=== PATIENT | female | born 1975 | race Caucasian/White ===

== ENCOUNTER 2018-08-12 22:25 | Emergency (ER) | payer OTHER ==
[2018-08-12 22:33] VITALS: BP 116/76; PULSE 70; TEMP 98.8; BMI 27.4
[2018-08-12] MEDS ORDERED: SULFAMETHOXAZOLE 80 MG/TRIMETHOPRIM 16 MG/ML VIAL IVPB ONE (22:43)
[2018-08-12] MEDS ORDERED: VANCOMYCIN 1,000 MG in DEXTROSE 5%-WATER - 250 ML IVPB ONE (23:06)
[2018-08-12] MEDS ORDERED: VANCOMYCIN 1,000 MG VIAL (RESTRICTED TO ID ONLY) ONE (23:07)
[2018-08-12] MEDS ORDERED: SULFAMETHOXAZOLE/TRIMETHOPRIM 800MG/160MG D.S. TABLET PO ONE (23:07)
[2018-08-12] MEDS ORDERED: SULFAMETHOXAZOLE/TRIMETHOPRIM 800MG/160MG D.S. TABLET ONE (23:07)
--- NOTE | 2018-08-12 23:09 | PDOC ---
Documentation entered by Russ Bowen SCRIBE, acting as scribe for Eva Louie MD. Eva Louie MD: This documentation has been prepared by the Jessi roach Xhesika, SCRIBE, under my direction and personally reviewed by me in its entirety. I confirm that the documentation accurately reflects all work, treatment, procedures, and medical decision making performed by me. History of Present Illness - General Chief Complaint: Pain Stated Complaint: FEVER History Source: Patient Exam Limitations: No Limitations - History of Present Illness Initial Comments: 08/12/18 22:35 The patient is a 42 year old male, with no significant past medical history of who presents to the emergency department with a fever since this evening. The patient states she saw her PCP today for an infection on her breast, was prescribed bactrim and took her first dose at 12pm. The patient states at around 6:30pm she got a fever, felt shaky, and was feeling cold, however, her chills and shakiness have since resolved. The patient states she took ibuprofen 1hr prior to her ED arrival. The patient denies chest pain, shortness of breath, headache or dizziness. The patient denies chills, nausea, vomit, diarrhea or constipation. The patient denies dysuria, frequency, urgency or hematuria. PAST MEDICAL HISTORY: no significant history PAST SURGICAL HISTORY: no significant history FAMILY HISTORY: no pertinent history SOCIAL HISTORY: Pt lives with family and is employed. MEDICATIONS: reviewed ALLERGIES: As per nursing notes 08/12/18 22:37 A female who has diagnosis of a superficial cellulitis of her left breast. Patient started on Bactrim today to one dose had not taken her second dose. Patient spiked a temperature so comes in complaining of fever. Here in the ED patient was afebrile. However she did take Tylenol prior to coming in. Patient given IV Bactrim and discharged will follow-up with her primary care Past History - Past Medical History Allergies/Adverse Reactions: Allergies Allergy/AdvReac Type Severity Reaction Status Date / Time Penicillins Allergy Verified 08/12/18 22:27 Home Medications: Ambulatory Orders Aspirin 81 mg PO DAILY 08/12/18 Clonazepam [Klonopin] 0.5 mg PO DAILY 04/29/19 Escitalopram Oxalate [Lexapro -] 20 mg PO DAILY 08/12/18 Review of Systems - Review of Systems Able to Perform ROS?: Yes Comments:: 08/12/18 22:36 General: (+) fevers. No chills, no weakness, no weight loss HEENT: No change in vision. No sore throat,. No ear pain CardioVascular: No chest pain or shortness of breath Respiratory:No cough, or wheezing. Gastrointestinal: no nausea, vomiting, diarrhea or constipation, No rectal bleeding Genitourinary: No dysuria, hematuria, or frequency Musculoskeletal: No joint or muscle pain or swelling Neurologic: No headache, vertigo, dizziness or loss of consciousness Psychiatric: nor depression Skin: No rashes or easy bruising Endocrine: no increased thirst or abnormal weight change Allergic: no skin or latex allergy All other systems reviewed and normal *Physical Exam - Vital Signs Last Vital Signs Temp Pulse Resp BP Pulse Ox 98.8 F 70 16 116/76 99 08/12/18 22:29 08/12/18 22:29 08/12/18 22:29 08/12/18 22:29 08/12/18 22:29 - Physical Exam Comments: 08/12/18 22:36 GENERAL: The patient is awake, alert, and fully oriented, in no acute distress. HEAD: Normal with no signs of trauma. EYES: Pupils equal, round and reactive to light, extraocular movements intact, sclera anicteric, conjunctiva clear. BREAST: (+) erythema and tenderness over palpation of lower outer quadrant of L breast. No palpable collection. EXTREMITIES: Normal range of motion, no edema. NEUROLOGICAL: Normal speech, normal gait. PSYCH: Normal mood, normal affect. SKIN: Warm, Dry, normal turgor, no rashes or lesions noted. *DC/Admit/Observation/Transfer Diagnosis at time of Disposition: Cellulitis Qualifiers: Site of cellulitis: unspecified site Qualified Code(s): L03.90 - Cellulitis, unspecified - Discharge Dispostion Disposition: HOME Condition at time of disposition: Stable Decision to Admit order: No - Referrals - Patient Instructions Additional Instructions: Tylenol or Motrin as needed for fevers To take your antibiotics as prescribed. Return to the emergency department immediately with ANY new, persistent or worsening symptoms. Continue any medications as previously prescribed by your physician. You should follow up with your primary doctor as soon as possible regarding today's emergency department visit. . Please make sure your doctor reviews the results of your emergency evaluation. Thank you for coming to the Emergency Department today for your care. It was a pleasure to see you today. Please note that your evaluation is INCOMPLETE until you follow-up with your doctor. - Post Discharge Activity
== END 2018-08-13 00:37 | disposition home or self-care (01) ==
LOC: FER 22:25
DX: N61.0 Mastitis without abscess (principal)
CPT/HCPCS: 96365; 99281-25

== ENCOUNTER 2020-06-10 18:44 | Emergency (ER) | payer OTHER ==
[2020-06-10 18:52] VITALS: BP 127/86; PULSE 63; TEMP 97.6; BMI 28.1
== END 2020-06-10 20:01 | disposition home or self-care (01) ==
LOC: FER 18:44
DX: R11.0 Nausea (principal); M54.2 Cervicalgia; M25.511 Pain in right shoulder
CPT/HCPCS: 93005; 99283-25

== ENCOUNTER 2023-10-21 16:53 | Emergency (ER) | payer BC ==
[2023-10-21 17:20] VITALS: TEMP 97.4; BMI 30.4
[2023-10-21] MEDS ORDERED: metoPROLOL SUCCINATE 25 MG TAB.SR.24H (FP) PO ONE (18:23)
[2023-10-21] MEDS: metoPROLOL SUCCINATE 25 MG TAB.SR.24H (FP) PO ONE (18:25)
[2023-10-21] MEDS: FLECAINIDE ACETATE 100 MG TABLET PO ONE (18:41)
[2023-10-21 18:46] LABS: HEMATOCRIT 40.9 % (32.4-45.2); HEMOGLOBIN 13.6 G/dL (10.7-15.3); MCH 32.7 pg (25.7-33.7); MCHC 33.3 g/dl (32.0-36.0); MEAN CELL VOLUME 98.3 fl (80-96); MEAN PLT VOLUME 7.9 fl (7.5-11.1); PLATELET COUNT 240.3 10^3/uL (134-434); RBC 4.16 10^6/uL (3.60-5.2); RDW 13.4 % (11.6-15.6); WHITE BLOOD COUNT 8.2 10^3/uL (4.0-10.8)
[2023-10-21 18:57] LABS: ALK PHOS 80 U/L (45-117); ANION GAP 9 mmol/L (4-13); BILIRUBIN,TOTAL 0.4 mg/dl (0.2-1); CALCIUM 9.2 mg/dl (8.5-10.1); CHLORIDE 104 mmol/L (98-107); CO2 25 mmol/L (21-32); CREATININE 0.8 mg/dl (0.6-1.3); GLUCOSE,RANDOM 105 mg/dl (74-106); POTASSIUM 3.5 mmol/L (3.5-5.1); SGOT/AST 17 U/L (15-37); SGPT/ALT 13 U/L (7-52); SODIUM 138 mmol/L (136-145); TOT PROT 6.8 g/dl (6.4-8.2)
[2023-10-21 19:25] VITALS: BP 123/84; PULSE 107; RESP 16
[2023-10-21 19:29] LABS: PLATELET ESTIMATE ADEQUATE
== END 2023-10-21 19:42 | disposition home or self-care (01) ==
LOC: FER 16:53
DX: I48.91 Unspecified atrial fibrillation (principal)
CPT/HCPCS: 36415; 71045-TC-FY; 80053; 83735; 84484; 85027; 93005; 99285-25

== ENCOUNTER 2024-02-24 11:06 | Inpatient (IN) | payer BC ==
[2024-02-24 11:28] VITALS: BMI 30.8
[2024-02-24 12:17] LABS: INR 1.13 (0.83-1.09); PROTHROMBIN TIME (PATIENT) 12.8 SEC (9.7-13.0)
[2024-02-24 12:26] LABS: HEMOGLOBIN 13.4 G/dL (10.7-15.3); MCH 31.7 pg (25.7-33.7); MCHC 32.6 g/dl (32.0-36.0); MEAN CELL VOLUME 97.4 fl (80-96); MEAN PLT VOLUME 8.7 fl (7.5-11.1); PLATELET COUNT 216.2 10^3/uL (134-434); RBC 4.21 10^6/uL (3.60-5.2); RDW 13.5 % (11.6-15.6); WHITE BLOOD COUNT 7.4 10^3/uL (4.0-10.8)
[2024-02-24 12:30] LABS: PLATELET ESTIMATE ADEQUATE
[2024-02-24 12:46] LABS: CREATININE 0.8 mg/dl (0.6-1.3)
[2024-02-24 12:47] LABS: BILIRUBIN,TOTAL 0.4 mg/dl (0.2-1); CALCIUM 9.3 mg/dl (8.5-10.1); POTASSIUM 3.9 mmol/L (3.5-5.1); TOT PROT 6.6 g/dl (6.4-8.2)
[2024-02-24 13:55] LABS: N-TERMINAL BNP 1927.7 pg/ml (5-125)
[2024-02-24] MEDS ORDERED: PATIENT'S OWN MEDICATION (NON-FORMULARY) (Clonazepam [Klonopin] 1 MG Tablet) PO PRN (15:07)
[2024-02-24] MEDS ORDERED: PATIENT'S OWN MEDICATION (NON-FORMULARY) (Famotidine [Pepcid] 40 MG Tablet) PO PRN (15:07)
[2024-02-24] MEDS ORDERED: FAMOTIDINE 40 MG TABLET PO PRN (15:51)
[2024-02-24] MEDS ORDERED: FUROSEMIDE 40 MG/4 ML INJECTABLE VIAL ONE (17:23)
[2024-02-24] MEDS: FUROSEMIDE 40 MG/4 ML INJECTABLE VIAL IVPUSH ONE (17:25)
[2024-02-24] MEDS ORDERED: FLECAINIDE ACETATE PO SCH (22:00)
[2024-02-24] MEDS: FLECAINIDE ACETATE 50 MG TABLET PO SCH (22:16)
[2024-02-24] MEDS: metoPROLOL SUCCINATE 25 MG TAB.SR.24H (FP) PO SCH (22:16)
[2024-02-24] MEDS: APIXABAN 5 MG TABLET PO SCH (22:16)
[2024-02-25 08:20] LABS: BASO % 0.5 % (0-2.0); EOS % 1.6 % (0-4.5); HEMATOCRIT 41.7 % (32.4-45.2); HEMOGLOBIN 14.5 GM/dL (10.7-15.3); LYMPH % 40.1 % (8-40); MCH 33.1 pg (25.7-33.7); MCHC 34.7 g/dl (32.0-36.0); MEAN CELL VOLUME 95.4 fl (80-96); MONO % 8.7 % (3.8-10.2); NEUT % 49.1 % (42.8-82.8); PLATELET COUNT 230 10^3/uL (134-434); RBC 4.37 M/mm3 (3.60-5.2); RDW 13.4 % (11.6-15.6); WHITE BLOOD COUNT 7.1 K/mm3 (4.0-10.0)
[2024-02-25 08:43] LABS: POTASSIUM 3.8 mmol/L (3.5-5.1)
[2024-02-25 08:50] LABS: CALCIUM 9.3 mg/dL (8.5-10.1)
[2024-02-25 08:51] LABS: ALBUMIN 3.3 g/dl (3.4-5.0); BLOOD UREA NITROGEN 17.8 mg/dL (7-18)
[2024-02-25 08:54] LABS: CREATININE 0.9 mg/dL (0.55-1.3)
[2024-02-25 08:56] LABS: BILIRUBIN,TOTAL 0.6 mg/dL (0.2-1); TOT PROT 6.8 g/dl (6.4-8.2)
[2024-02-25] MEDS: LOSARTAN POTASSIUM 25 MG TABLET PO SCH (11:31)
[2024-02-25] MEDS: SERTRALINE HCL 50 MG TABLET (FP) PO SCH (11:31)
[2024-02-25] MEDS: TORSEMIDE 20 MG TABLET (FP) PO SCH (16:37)
[2024-02-26 09:38] LABS: BASO % 0.5 % (0-2.0); EOS % 1.8 % (0-4.5); HEMATOCRIT 39.2 % (32.4-45.2); HEMOGLOBIN 13.3 GM/dL (10.7-15.3); LYMPH % 34.3 % (8-40); MCH 32.5 pg (25.7-33.7); MEAN CELL VOLUME 95.7 fl (80-96); MEAN PLT VOLUME 8.1 fl (7.5-11.1); MONO % 9.5 % (3.8-10.2); NEUT % 53.9 % (42.8-82.8); PLATELET COUNT 210 10^3/uL (134-434); RBC 4.09 M/mm3 (3.60-5.2); RDW 13.1 % (11.6-15.6); WHITE BLOOD COUNT 6.4 K/mm3 (4.0-10.0)
[2024-02-26 10:16] LABS: POTASSIUM 3.7 mmol/L (3.5-5.1)
[2024-02-26] MEDS: clonazePAM 0.5 MG TABLET PO PRN (10:16)
[2024-02-26 10:25] LABS: ALBUMIN 3.4 g/dl (3.4-5.0); BLOOD UREA NITROGEN 20.1 mg/dL (7-18); MAGNESIUM 2.1 mg/dL (1.8-2.4)
[2024-02-26 10:28] LABS: CREATININE 0.9 mg/dL (0.55-1.3); PHOSPHOROUS 3.4 mg/dL (2.5-4.9)
[2024-02-26 10:29] LABS: BILIRUBIN,TOTAL 0.5 mg/dL (0.2-1); TOT PROT 6.9 g/dl (6.4-8.2)
[2024-02-27 01:28] VITALS: RESP 18
[2024-02-27 10:13] LABS: BASO % 0.5 % (0-2.0); EOS % 1.5 % (0-4.5); HEMATOCRIT 39.2 % (32.4-45.2); HEMOGLOBIN 13.3 GM/dL (10.7-15.3); LYMPH % 32.4 % (8-40); MCH 32.9 pg (25.7-33.7); MCHC 33.9 g/dl (32.0-36.0); MEAN CELL VOLUME 97.1 fl (80-96); MEAN PLT VOLUME 7.7 fl (7.5-11.1); MONO % 9.5 % (3.8-10.2); NEUT % 56.1 % (42.8-82.8); PLATELET COUNT 213 10^3/uL (134-434); RBC 4.04 M/mm3 (3.60-5.2); RDW 13.2 % (11.6-15.6); WHITE BLOOD COUNT 6.7 K/mm3 (4.0-10.0)
[2024-02-27 10:28] LABS: POTASSIUM 3.7 mmol/L (3.5-5.1)
[2024-02-27 10:31] LABS: ALBUMIN 3.2 g/dl (3.4-5.0); BLOOD UREA NITROGEN 19.5 mg/dL (7-18)
[2024-02-27 10:34] LABS: CREATININE 0.9 mg/dL (0.55-1.3)
[2024-02-27 10:36] LABS: BILIRUBIN,TOTAL 0.6 mg/dL (0.2-1); TOT PROT 6.7 g/dl (6.4-8.2)
[2024-02-27 14:23] VITALS: BP 113/72; PULSE 64; TEMP 97.9
== END 2024-02-27 15:26 | disposition home or self-care (01) | DRG 194 ==
LOC: FER 11:06 → J4S 20:30
PROVIDERS: ADMIT Internal Medicine
DX: I11.0 Hypertensive heart disease with heart failure (principal); E78.5 Hyperlipidemia, unspecified; F41.8 Other specified anxiety disorders; I48.0 Paroxysmal atrial fibrillation; I50.33 Acute on chronic diastolic (congestive) heart failure; K21.9 Gastro-esophageal reflux disease without esophagitis
CPT/HCPCS: 36415; 71046-TC-FY; 71260-TC; 80053; 82550; 83735; 83880; 84100; 84443; 84484; 84703; 85025; 85027; 85610; 86618; 93005; 93010; 93306-TC; 99285-25; Q9967